=== PATIENT | male | born 1995 | race Caucasian/White ===

== ENCOUNTER 2017-04-27 19:26 | Inpatient (IN) ==
[2017-04-27] MEDS ORDERED: 0.9 % Sodium Chloride 1,000 ML IVC ONE (19:39)
--- NOTE | 2017-04-27 19:57 | Emergency Department Note ---
Disposition Clinical Impression: Drug abuse Leukocytosis Qualifiers: Leukocytosis type: unspecified Qualified Code(s): D72.829 - Elevated white blood cell count, unspecified Disposition: Admitted As Inpatient Condition: Fair Time of Disposition: 21:38 General Adult HPI - General Chief complaint: ED Weakness Stated complaint: bodyache/weakness Time Seen by Provider: 04/27/17 19:37 Source: patient, family, EMS Limitations: no limitations Nursing Notes Reviewed: Yes Vital Signs Reviewed: Yes - History of Present Illness HPI Narrative: Patient is a 21-year-old male who presents to [facility] ED with a chief complaint of generalized body aches and weakness. Patient was transferred here from the [place] urgent care with concern for possible endocarditis. Patient is an IV drug user and uses heroin approximately half gram daily over the course of 3-4 injections. The last time he used was 8:00 this morning. Admits to nausea, no vomiting. Has felt hot and chills at home though has not taken his temperature. He was sent over with concern for WBC count of 29,000. Patient denies any prior medical history. Onset (ago): day(s) Pain Scale: 0 Consistency: constant Improves with: nothing Worsens with: nothing Associated symptoms: Reports: fever/chills, malaise, nausea/vomiting, weakness. Denies: cough, headaches, loss of appetite, shortness of breath Treatments Prior to Arrival: none - Related Data Previous Rx's Medication Instructions Recorded Clindamycin [Cleocin] 150 mg PO Q6HR #40 capsule 02/07/17 Sulfamethoxazole/Trimeth DS 1 each PO BID #20 tablet 02/07/17 [Bactrim DS] Allergies Allergy/AdvReac Type Severity Reaction Status Date / Time No Known Allergies Allergy Verified 02/07/17 15:39 All systems ED: reviewed and negative except as stated. Past Medical History - Past Medical History Attestation: Yes The following information was validated with the patient. Source: patient Medical history: Reports: hepatitis, other Surgical history: Reports: no surgical history Psychiatric history: Reports: anxiety, depression, PTSD - Social History Smoking Status: Current every day smoker Smokeless Tobacco Status: No Alcohol use: Reports: none Drug use: Reports: marijuana, IV Drug Use Physical Exam - General Limitations: no limitations General appearance: alert, in no apparent distress - Head Head exam: atraumatic, normocephalic, normal inspection - Eye Eye exam: Present: normal appearance, PERRL, EOMI - ENT ENT exam: normal exam, normal oropharynx, mucous membranes moist - Neck Neck exam: Present: normal inspection, full ROM, trachea midline - Chest Chest inspection: Present: normal inspection, symmetric chest wall rise - Respiratory Respiratory exam: Present: normal lung sounds bilaterally - Cardiovascular Cardiovascular exam: Present: normal rhythm, tachycardia - Abdominal Exam Abdominal exam: Present: soft, Non-Tender. Absent: tenderness, distention, guarding, rebound, rigidity - Extremities Exam Extremities exam: Present: full ROM, other (track turk present). Absent: tenderness, pedal edema - Back Exam Back exam: Present: normal inspection, full ROM. Absent: tenderness - Neurological Exam Neurological exam: Present: alert, oriented X3 - Psychiatric Psychiatric exam: Present: normal affect, normal mood - Skin Skin exam: Present: warm, dry, intact, normal color Course Course Narrative: Patient seen and examined. Generalized weakness and feeling ill. Patient is nauseated. Admits to IV drug use. Patient had a full workup done [place] the [place] and received a dose of Rocephin IM. He had 2 blood cultures drawn there. We will repeat a set of blood cultures 3 here. We will add vancomycin for MRSA coverage. Patient is very tachycardic in the 120s here. We will give him a fluid bolus and do a CTA of the chest to evaluate for possible septic emboli. Pt will be admitted for tx for possible endocarditis and echocardiogram. - Reevaluation(s) Reevaluation #1: CTA of the chest does not show any signs of septic emboli. We will admit for workup for possible endocarditis/bacteremia. Discussed with hospitalist Dr. Burrell who has accepted patient for admission. Time: 21:39 Vital Signs Temperature 99.2 F 04/27/17 19:34 Pulse Rate 112 04/27/17 19:34 Respiratory Rate 16 04/27/17 19:34 Blood Pressure 117/90 04/27/17 19:34 O2 Sat by Pulse Oximetry 97 04/27/17 19:34 Temperature 99.2 F 04/27/17 19:34 Pulse Rate 114 04/27/17 20:53 Respiratory Rate 20 04/27/17 20:53 Blood Pressure 120/92 04/27/17 20:53 O2 Sat by Pulse Oximetry 98 04/27/17 20:53 Oxygen Delivery Oxygen Delivery Room Air Medical Decision Making - Medical Records Medical records reviewed: Yes I reviewed the patient's medical records. - Lab Data Lab results reviewed: Yes I reviewed the patient's lab results. - Radiology Data Radiology results reviewed: Yes I reviewed the patient's radiology results. Chest CTA 04/27/17 19:38 IMPRESSION: Normal CTA chest D/ / Niko Unger MD / Niko Unger MD Interpreting Provider: Niko Unger MD Attestation Statement - Attestation Attestation: I, Jacky Peña MD, personally evaluated this patient and discussed their management with the resident physician. I reviewed the resident's note and agree with the documented findings, medical decision making, and plan of care. Patient is a 21-year-old male who is transferred here from the local [place] urgent care for admission for possible bacterial endocarditis. Patient has a history of IV drug abuse. According to [place] records. Appears he has had bacterial endocarditis in the past. Patient presented there complaining of symptoms for about 2-1/2 weeks. Patient had an abscess to the left forehead and cultures grew out MRSA. He states ever since that time he has had chills and fevers with generalized weakness and body aches. No significant cough. He has had some mild intermittent chest pain but none today. No significant shortness of breath. Workup today at the [place] revealed a WBC of 29. Patient had blood cultures at the [place] and was given Rocephin 1 g IM. On examination patient is a well-developed well-nourished well-appearing young male in no acute distress. He arrived sitting upright on the EMS stretcher texting on his cell phone. He is alert and oriented 3. There is no cyanosis or diaphoresis. Patient has a small crusted healing lesion to the left upper forehead. Mucous membranes are moist. Throat is clear with no injection or exudate. Airways patent. Neck is supple and nontender with no lymphadenopathy and full range of motion. No meningismus. Breath sounds clear and equal bilaterally. Heart tachycardic and regular. Abdomen is soft with normal bowel sounds. No gross focal neurological deficits. [facility] Additional blood cultures obtained here. A CTA of the chest was obtained and was normal. The hospitalist, Dr. Burrell, was consulted and accepted admission of the patient.
[2017-04-27] MEDS ORDERED: Ondansetron 4 MG/2 ML VIAL IVP PRN (22:00)
[2017-04-27] MEDS ORDERED: Acetaminophen 325 MG TABLET PO PRN (22:00)
[2017-04-27] MEDS ORDERED: Naloxone 0.4 MG/ML INJ IVP PRN (22:00)
--- NOTE | 2017-04-27 22:13 | Internal Med History&Physical ---
Date of Encounter: 04/27/17 Time of Encounter: 21:00 Assessment and Plan (1) Sepsis Current visit: Yes Status: Acute Patient admitted sepsis criteria with tachycardia, fever, leukocytosis. The source of the infection probably due to IV drug abuse, need to rule out bacteremia or endocarditis. - IV fluid resuscitation started in ER - Blood pressure has been drawn - Continue vancomycin and Rocephin IV - TTE in a.m. to rule out endocarditis - Follow up blood culture results Qualifiers: Sepsis type: sepsis due to unspecified organism Qualified Code(s): A41.9 - Sepsis, unspecified organism (2) IV drug user Current visit: Yes Status: Acute Withdraw precaution. No signs of withdrawal at this point (3) Tobacco abuse Current visit: Yes Status: Acute Smoking cessation education. Nicotine patch place (4) DVT prophylaxis Current visit: Yes Status: Acute Patient is young and ambulating well. Low risk for DVT. No anticoagulation placed Internal Medicine - H&P: HPI Chief complaint: Weakness Admitted From: Home Plans for Post Hospital Care: Home History of present illness: Mr. Tam is a 21 year old male with history of tobacco abuse, IV drug abuse, presented to the [place] urgent care today for generalized weakness, subjective fever , mild headache, nausea, vomiting, and muscle ache. Patient said he feels sick like this for about one week. This morning he checked the temperature which was 100.1. Patient denies runny nose, sore throat, cough, abdominal pain, diarrhea. In [place] urgent care, he was found leukocytosis with WBC 29,000. Patient was transferred to our hospital to rule out endocarditis considering the history of IV drug use. Patient had blood cultures send from [place] urgent and also had 3 sets of blood culture drawn in our ER. Patient was started on Vanco. The patient was also given Rocephin from [place] urgent care. Patient said he was checked recently in [place], he was told hep C positive but HIV negative. Past Med Surg Social Fam HX - Past Medical History Medical history: hepatitis, other Psychiatric history: anxiety, depression, PTSD - Past Surgical History Surgical History: no surgical history - Social History Smoking Status: Current every day smoker Smokeless Tobacco Status: No Alcohol use: none Drug use: marijuana, IV Drug Use - Family History Mother History Unknown: Yes Internal Medicine - H&P: Meds Clindamycin [Cleocin] 150 mg PO Q6HR #40 capsule 02/07/17 [Rx] Sulfamethoxazole/Trimeth DS [Bactrim DS] 1 each PO BID #20 tablet 02/07/17 [Rx] 3 Allergy/AdvReac Type Severity Reaction Status Date / Time No Known Allergies Allergy Verified 02/07/17 15:39 All Systems PM: A 10-system review of systems was performed and is negative for pertinent findings except as documented above in the HPI. - Constitutional Vitals: Temp Pulse Resp BP Pulse Ox 99.2 F 114 20 120/92 98 04/27/17 19:34 04/27/17 20:53 04/27/17 20:53 04/27/17 20:53 04/27/17 20:53 General appearance: Present: A&O X 3, no acute distress, answers questions appropriately - Head Head exam: Present: atraumatic, normocephalic - Eye Eye exam: Present: PERRL, conjuntiva pink, sclera anicteric Pupils: Present: PERRL - Neck Neck exam general surgery: Present: supple, trachea midline. Absent: lymphadenopathy - Respiratory Respiratory exam: Present: CTAB. Absent: accessory muscle use, rales, rhonchi, wheezes - Cardiovascular Cardiovascular exam: Present: RRR, +S1, +S2. Absent: diastolic murmur, gallop, rubs, systolic murmur - GI/Abdominal GI/Abdominal exam: Present: normal bowel sounds, soft, no peritoneal signs. Absent: distended, tenderness - Extremities Exam Extremities exam: Present: warm, radial pulses palpable and symmetrical. Absent : calf tenderness, cyanotic, pedal edema - Neurological Exam Neurological exam: Present: CN II-XII intact, oriented X3, no focal deficits. Absent: pronater drift, facial droop, speech deficit - Skin Skin exam: Present: dry, intact
[2017-04-27] MEDS: Nicotine 21 MG PATCH.TD24 TD SCH (23:37)
[2017-04-27] MEDS: 0.9 % Sodium Chloride 1,000 ML IVC SCH (23:38)
[2017-04-28 04:01] LABS: Basophils % 0.3 %; Eosinophils # 0.2 K/mcL (0.0-0.6); Eosinophils % 1.7 %; Hematocrit 39.2 % (37.5-50.1); Hemoglobin 12.8 g/dL (12.9-16.9); Immature Granulocytes % 0.3 % (0-4); Lymphocytes # 3.2 K/mcL (0.6-4.6); Lymphocytes % 26.8 %; Mean Corpuscular HGB Conc 32.7 g/dL (31.6-35.5); Mean Corpuscular Hemoglobin 28.6 pg (28.0-33.3); Mean Corpuscular Volume 87.7 fL (83.0-100.0); Monocytes % 8.1 %; Neutrophils # 7.5 K/mcL (1.6-8.9); Platelet Count 270 K/mcL (140-400); Red Blood Count 4.47 M/mcL (4.19-5.50); Red Cell Distribution Width 15.6 % (11.5-14.5); Segmented Neutrophils % 62.8 %
[2017-04-28 04:24] LABS: BUN/Creatinine Ratio 17 (6-26); Blood Urea Nitrogen 10 mg/dL (6-20); Calcium 8.2 mg/dL (8.6-10.3); Carbon Dioxide 28 mEq/L (23-29); Chloride 105 mEq/L (98-107); Glucose 102 mg/dL (70-105); Magnesium 2.1 mg/dL (1.6-2.6); Osmolality,Calculated 283 (280-300); Sodium 137 mEq/L (136-145); eGFR For African Americans > 60 (> 60); eGFR For Non-African Americans > 60 (> 60)
[2017-04-28] MEDS: 0.9 % Sodium Chloride 1,000 ML IVC SCH ×2 (08:12→20:30)
[2017-04-28] MEDS: Nicotine 21 MG PATCH.TD24 TD SCH (08:12)
[2017-04-28] MEDS ORDERED: cefTRIAXone 1,000 MG in Water for inj. (sterile) 20 ML 10 ML IVP SCH (09:00)
[2017-04-28] MEDS: cloNIDine HCl 0.1 MG TABLET PO SCH ×2 (10:11→20:30)
[2017-04-28] MEDS: *HR* LORazepam 2 MG/ML VIAL IVP PRN ×2 (14:35→23:19)
[2017-04-28] MEDS: Piperacillin/Tazobactam 3.375 GM in 0.9 % Sodium Chloride Mini Bag 100 ML IVPB SCH (15:30)
--- NOTE | 2017-04-28 16:23 | Internal Med Progress Note ---
Date of Encounter: 04/28/17 Time of Encounter: 16:22 - Assessment and plan (1) SIRS (systemic inflammatory response syndrome) Current Visit: Yes Status: Acute Assessment and plan: Does meet SIRS criteria with elevated WBC, Fever, and bacteremia cont empirical abx Vanc and added Zosyn IV hydration (2) Bacteremia Current Visit: Yes Status: Acute Assessment and plan: His blood cx 05/15 came back as positive for G+ve rods Cont Vancomycin d/c Rocephin added Zosyn for broad spectrum He does have heart murmur, and have 1 major and 3 minor criteria will f/u on TTE If TTE is non confirmatory definitely need MARCE Will consult Card for further eval will consult ID in AM for further abx management (3) IV drug abuse Current Visit: Yes Status: Acute Assessment and plan: High risk for withdraw symptoms Pt does use IV Fentanyl and IV Heroin will check UDS SW consulted on CIWA protocol on Ativan PRN on Clonidine 0.1mg BID IVF (4) Tobacco abuse Current Visit: Yes Status: Acute Assessment and plan: Counseled to quit smoking placed on nicotine patch - Subjective Interval history: Mr. Tam is a 21 year old male with history of tobacco abuse, IV drug abuse, presented to the [place] urgent care for generalized weakness, subjective fever, mild headache, nausea, vomiting, and muscle ache. Patient said he feels sick like this for about one week. This morning he checked the temperature which was 100.1. Patient denies runny nose, sore throat, cough, abdominal pain, diarrhea. In [place] urgent care, he was found leukocytosis with WBC 29,000. Patient was transferred to our hospital to rule out endocarditis considering the history of IV drug use. Patient had blood cultures send from [place] urgent and also had 3 sets of blood culture drawn in our ER. Patient was started on Vanco. The patient was also given Rocephin from [place] urgent care. Patient said he was checked recently in [place], he was told hep C positive but HIV negative. Pt is resting comfortably now. Denied any CP / SOB - Constitutional Vitals: Temp Pulse Resp BP Pulse Ox 98.7 F 89 16 112/68 99 04/28/17 15:34 04/28/17 15:34 04/28/17 15:34 04/28/17 15:34 04/28/17 15:34 General appearance: Present: A&O X 3, no acute distress, answers questions appropriately - Head Head exam: Present: atraumatic, normal inspection - Neck Neck exam general surgery: Present: supple - Respiratory Respiratory exam: Present: decreased breath sounds. Absent: rales, respiratory distress, rhonchi, wheezes - Cardiovascular Cardiovascular exam: Present: RRR, +S1, +S2, systolic murmur. Absent: tachycardia - GI/Abdominal GI/Abdominal exam: Present: normal bowel sounds, soft. Absent: rebound, rigid, tenderness - Extremities Exam Extremities exam: Absent: calf tenderness, pedal edema, tenderness - Back Exam Back exam: Absent: CVA tenderness (L), CVA tenderness (R) - Neurological Exam Neurological exam: Present: alert, oriented X3 - Psychiatric Psychiatric exam: Present: normal affect, suicidal ideation - Skin Skin exam: Absent: rash Internal Medicine: Result - Labs CBC & Chem 7: 04/28/17 03:44 04/28/17 03:44 Labs: Short CBC 04/28/17 Range/Units 03:44 WBC 11.9 H (4.3-11.1) K/mcL Hgb 12.8 L (12.9-16.9) g/dL Hct 39.2 (37.5-50.1) % Plt Count 270 (140-400) K/mcL Neutrophils # 7.5 (1.6-8.9) K/mcL BMP 04/28/17 03:44 Sodium 137 Potassium 4.0 Chloride 105 Carbon Dioxide 28 BUN 10 Creatinine 0.58 L Glucose 102 Calcium 8.2 L Consult Discharge Plan - Plan [facility]Primary Care Provider[facility] -
[2017-04-28] MEDS ORDERED: Ketorolac 15 MG/ML VIAL IVP ONE (21:15)
[2017-04-29] MEDS: Piperacillin/Tazobactam 3.375 GM in 0.9 % Sodium Chloride Mini Bag 100 ML IVPB SCH ×2 (01:00→07:51)
[2017-04-29] MEDS: 0.9 % Sodium Chloride 1,000 ML IVC SCH ×3 (07:02→15:50)
[2017-04-29] MEDS: Nicotine 21 MG PATCH.TD24 TD SCH (07:50)
[2017-04-29] MEDS: cloNIDine HCl 0.1 MG TABLET PO SCH ×2 (07:50→20:26)
[2017-04-29] MEDS: *HR* LORazepam 1 MG TABLET PO PRN (07:50)
[2017-04-29] MEDS: *HR* LORazepam 2 MG/ML VIAL IVP PRN ×3 (10:50→23:22)
--- NOTE | 2017-04-29 11:04 | Infectious Disease Consult ---
Date of Encounter: 04/29/17 Time of Encounter: 11:02 Assessment and Plan (1) Sepsis Status: Acute Assessment and plan: The patient had three SIRS criteria on admission. Likely secondary to bacteremia. Improved. WBC trending down. Tachycardia improved. Afebrile since admission. Blood cultures drawn at the [facility] are positive 2/2 sets for Bacillus species. Repeat blood cultures drawn in the ER are positive 2/3 sets for Bacillus species. Repeat blood cultures x 2 sets now. Check CBC and BMP. Qualifiers: Sepsis type: sepsis due to unspecified organism Qualified Code(s): A41.9 - Sepsis, unspecified organism (2) Bacteremia Status: Acute Assessment and plan: Causative organism Bacillus species. Final ID and sensitivities are pending. Blood cultures drawn x 2 sets at the [facility] 04/27/17 are positive 2/2 sets for GPR , likely Bacillus species. Repeat blood cultures drawn x 3 sets in the ER on 04/27/17 are positive 2/3 sets for Bacillus species. Source unclear, but likely IVDU. No endocarditis stigmata noted on exam. I do not appreciate a murmur. The patient has one major and two minor Modified Bello's Criteria --> possible endocarditis. TTE negative for vegetations. Will need MARCE prior to discharge. Check rheumatoid factor. Repeat blood cultures x 2 sets now. Continue Vancomycin IV. Pharmacy to dose. Goal trough ~15. Discontinue Zosyn. Duration of treatment depends on the clinical picture. Monitor renal function and for drug toxicity and dose-adjust antibiotics. (3) IV drug user Status: Acute Assessment and plan: Reports daily use of IV heroine and fentanyl. Known Hep C positive. Reports he was tested for HIV at the [facility] a few months ago and it was negative, but since he continues to do IV drugs we will re-check. Withdrawal management per the primary team. (4) Tobacco abuse Status: Acute Assessment and plan: Patient requesting to go outside and smoke. Discussed smoking cessation. Continue NRT per the primary team. Infectious Disease HPI - Data of Consult Patient: new to practice Consult date: 04/29/17 Requesting Physician: Kenneth Malik MD [facility] - Consult Narrative Reason for consult: Bacteremia History of present illness: Mr. 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 The patient was admitted to the hospital April 27 for possible endocarditis. We are consulted April 29 for antibiotic recommendations for bacteremia. Briefly, the patient's a 21-year-old male with past medical history as stated above. The patient presented to the [facility] urgent care with complaints of fevers, chills, nausea, vomiting, generalized fatigue and malaise and diffuse body aches that started about a week prior to admission. He recently had an abscess to the left for head that required incision and drainage at the [facility]. He states he is treated with amoxicillin and doxycycline and finished those antibiotics about 2 days prior to admission. He reports that the wound culture was positive for MRSA. Upon presentation to the [facility], the patient had leukocytosis with a white blood cell count 29,000 and concerns for possible murmur. With his history of IV drug use there was concern about possible endocarditis and he was transferred here to our emergency department. Upon arrival to the ER, the patient had low-grade fever and tachycardia. Blood cultures obtained at the [facility] +2 out of 2 sets for gram-positive rods as well as blood cultures drawn here that are + 2 out of 3 sets. I did speak with her micral lab and the micro-lab at the [facility] who both report that this is likely a bacillus species. He was started empirically on IV vancomycin and IV Rocephin. He was admitted to the hospital for further evaluation. Summer, the patient's white blood cell count has trended down. His tachycardia has resolved. He has been afebrile here. He did have a transthoracic echocardiogram that showed an EF of 60% and no valvular dysfunction. His antibiotics were switched to vancomycin and Zosyn. His bank trough this morning was 14.2. We have been asked to evaluate and make further recommendations. During my exam today, the patient endorses a history as stated above. He reports fevers and chills at home. He also reports a headache, but denies any neck pain or stiffness. He denies any recent congestion, earache, or sore throat. He reports the recent abscess to his left forehead as above. He denies any chest pain or shortness of breath or cough. He does report nausea and vomiting and some diffuse abdominal cramping. He denies any diarrhea or urinary complaints or penile discharge. He states his appetite has been okay. He denies any oral thrush or skin lesions except as mentioned above. He denies any visual disturbances, blurred vision, or floaters. He reports he injects into the right arm and denies any open sores, lesions, or rashes. Denies using any other injection sites. Reports diffuse body aches and myalgias, but denies any specific joint pain, swelling, or erythema. He denies back pain. She lives at home alone in [place], [place]. He is not currently employed. He was in the [employer] and served overseas in [place] and [place], but has not been outside the [place] for about 2 years. He reports that he smokes a pack cigarettes per day. He denies any alcohol use. He reports IV heroin and IV sentinel use daily. He is known hep C positive. No other history of right infectious diseases. CC: Kenneth Malik MD Past Med Surg Social Fam HX - Past Medical History Attestation: Yes The following information was validated with the patient. Source: patient, old records reviewed, nursing notes reviewed Medical history: hepatitis (Hep C) Psychiatric history: anxiety, depression, PTSD - Past Surgical History Surgical History: no surgical history - Social History Smoking Status: Current every day smoker Packs per day: 1 Smokeless Tobacco Status: No Alcohol use: none Drug use: marijuana, IV Drug Use (Heroine and Fentanyl) Occupational status: unemployed Current living situation: Home - Independent Activity Level: Independent ambulation Recent Out of Country Travel Within the Last 8 Weeks: No Exposure or Possible Exposure to Illness During Travel: No - Family History Mother History Unknown: Yes Grandfather Living Status: Still Living Hx Family Cardiac Disorders: Yes Infectious Disease-CN:Meds No Known Home Drugs 04/29/17 [History] 3 Allergy/AdvReac Type Severity Reaction Status Date / Time No Known Allergies Allergy Verified 04/29/17 11:20 All systems: reviewed and no additional remarkable complaints except as stated Exam - Constitutional Vitals: Temp Pulse Resp BP Pulse Ox 98.4 F 80 16 109/67 97 04/29/17 07:57 04/29/17 07:57 04/29/17 07:57 04/29/17 07:57 04/29/17 07:57 General appearance: cooperative, no acute distress, thin - Head Head exam: Present: atraumatic, normal inspection, normocephalic - Eye Eye exam: Present: EOMI, normal appearance, PERRL Pupils: Present: normal accommodation Additional comments: No subconjunctival hemorrhage noted. - ENT ENT exam: Present: mucous membranes moist Additional comments: Missing tooth noted. Scabbed lesion noted to the left temporal region. No surround erythema, warmth, or drainage noted. - Neck Neck exam: Present: normal inspection. Absent: lymphadenopathy, meningismus - Respiratory Respiratory exam: Present: CTAB. Absent: rales, respiratory distress, rhonchi, wheezes - Cardiovascular Cardiovascular exam: Present: RRR, +S1, +S2 - GI/Abdominal GI/Abdominal exam: Present: normal bowel sounds, soft. Absent: distended, tenderness - Extremities Exam Extremities exam: Present: normal inspection. Absent: joint swelling, pedal edema, tenderness - Back Exam Back exam: Absent: paraspinal tenderness, vertebral tenderness - Neurological Exam Neurological exam: Present: alert, oriented X3, no focal deficits - Psychiatric Psychiatric exam: Present: normal affect, normal mood - Skin Skin exam: Present: dry, intact, normal color, warm Additional comments: No endocarditis stigmata noted. Infectious Disease CN: Results - Labs CBC & Chem 7: 04/29/17 11:32 04/29/17 11:32 Cultures: Cultures 04/27/17 20:07 Blood Culture - Preliminary Peripheral Venipuncture No growth. 04/27/17 20:07 Blood Culture - Preliminary Peripheral Venipuncture Gram Positive Rods 04/27/17 20:07 Blood Culture - Preliminary Peripheral Venipuncture Gram Positive Rods Consult Discharge Plan - Plan [facility]errals: [facility] [Primary Care Provider] - - Attending Attestation I examined this patient and my medical decision-making was reviewed with the Resident Physician. I agree with the documented findings, disposition and treatment plan as described except to the extent set forth below. This is an addendum to original report dictated by Cris Bauman CNP. Please refer to Isidra lewis for full details. Briefly patient is a 21 year old gentleman with past medical history for recent diagnosis of Hep C and social history for IVDU with heroin and fentanyl who presented to the [facility] with fevers, chills, nausea, fatigue and just not feeling well. Patient was evaluated and they noted patient to be febrile, cultures positive for GPR and questionable murmur on physical exam. Patient was sent here for evaluation. Since admission, patient has been afebrile with tmax of 99.2, tachycardia, leukocytosis and positive blood cultures 2/3 sets for GPR. Pt had a TTE which revealed no vegetation. Pt was stared on broad spectrum abx and we were consulted. At this point, Patient is on vancomycin and zosyn The gpr is likely a bacillus Will d/c zosyn Continue vancomycin with gaol trough about 15 Repeat cultures today Get RF Pt has 3 minor dukes criteria
[2017-04-29 12:11] LABS: Basophils % 0.3 %; Eosinophils % 0.4 %; Hemoglobin 13.1 g/dL (12.9-16.9); Immature Granulocytes % 0.3 % (0-4); Lymphocytes # 1.9 K/mcL (0.6-4.6); Lymphocytes % 20.6 %; Mean Corpuscular HGB Conc 32.8 g/dL (31.6-35.5); Mean Corpuscular Hemoglobin 28.4 pg (28.0-33.3); Mean Corpuscular Volume 86.8 fL (83.0-100.0); Mean Platelet Volume 9.4 fL (9.4-12.4); Monocytes # 0.7 K/mcL (0.0-1.3); Neutrophils # 6.6 K/mcL (1.6-8.9); Platelet Count 302 K/mcL (140-400); Red Blood Count 4.61 M/mcL (4.19-5.50); Red Cell Distribution Width 15.7 % (11.5-14.5); Segmented Neutrophils % 71.4 %
[2017-04-29 12:43] LABS: BUN/Creatinine Ratio 8 (6-26); Blood Urea Nitrogen 5 mg/dL (6-20); C-Reactive Protein 17 mg/L (Less than 10); Carbon Dioxide 26 mEq/L (23-29); Chloride 108 mEq/L (98-107); Glucose 126 mg/dL (70-105); Osmolality,Calculated 283 (280-300); Potassium 3.6 mEq/L (3.5-5.1); Sodium 137 mEq/L (136-145); eGFR For African Americans > 60 (> 60); eGFR For Non-African Americans > 60 (> 60)
--- NOTE | 2017-04-29 17:40 | Internal Med Progress Note ---
Date of Encounter: 04/29/17 Time of Encounter: 11:45 - Assessment and plan (1) SIRS (systemic inflammatory response syndrome) Current Visit: Yes Status: Acute Assessment and plan: Does meet SIRS criteria with elevated WBC, Fever, and bacteremia cont empirical abx Vanc and added Zosyn d/c IVF (2) Bacteremia Current Visit: Yes Status: Acute Assessment and plan: His blood cx 05/15 came back as positive for G+ve rods - Mostly bacillus Talked to ID, [facility] - shows Bacillus ID suggestes it is very unlkely endocarditis Did not recommend MARCE 2 D Echo did not show any vegetations Cont Vancomycin d/c Zosyn Will defer to ID about further abx management and duration of treatment (3) IV drug abuse Current Visit: Yes Status: Acute Assessment and plan: High risk for withdraw symptoms Pt does use IV Fentanyl and IV Heroin SW consulted UDS - P on CIWA protocol on Ativan PRN on Clonidine 0.1mg BID d/c IVF (4) Tobacco abuse Current Visit: Yes Status: Acute Assessment and plan: Counseled to quit smoking placed on nicotine patch - Subjective Interval history: Mr. Tam is a 21 year old male with history of tobacco abuse, IV drug abuse, presented to the [facility] urgent care for generalized weakness, subjective fever, mild headache, nausea, vomiting, and muscle ache. Patient said he feels sick like this for about one week. This morning he checked the temperature which was 100.1. Patient denies runny nose, sore throat, cough, abdominal pain, diarrhea. In [place] urgent care, he was found leukocytosis with WBC 29,000. Patient was transferred to our hospital to rule out endocarditis considering the history of IV drug use. Patient had blood cultures send from [facility] urgent and also had 3 sets of blood culture drawn in our ER. Patient was started on Vanco. The patient was also given Rocephin from [facility] urgent care. Patient said he was checked recently in [place], he was told hep C positive but HIV negative. Pt is resting comfortably now. Denied any CP / SOB - Constitutional Vitals: Temp Pulse Resp BP Pulse Ox 98.8 F 84 14 113/72 97 04/29/17 15:26 04/29/17 15:26 04/29/17 15:26 04/29/17 15:26 04/29/17 15:26 General appearance: Present: A&O X 3, no acute distress, answers questions appropriately - Head Head exam: Present: atraumatic, normal inspection - Neck Neck exam general surgery: Present: supple - Respiratory Respiratory exam: Present: decreased breath sounds. Absent: rales, respiratory distress, rhonchi, wheezes - Cardiovascular Cardiovascular exam: Present: RRR, +S1, +S2. Absent: tachycardia - GI/Abdominal GI/Abdominal exam: Present: normal bowel sounds, soft. Absent: rebound, rigid, tenderness - Extremities Exam Extremities exam: Absent: calf tenderness, pedal edema, tenderness - Back Exam Back exam: Absent: CVA tenderness (L), CVA tenderness (R) - Neurological Exam Neurological exam: Present: alert, oriented X3 - Psychiatric Psychiatric exam: Present: normal affect, normal mood Internal Medicine: Result - Labs CBC & Chem 7: 04/29/17 11:32 04/29/17 11:32 Labs: Short CBC 04/29/17 Range/Units 11:32 WBC 9.2 (4.3-11.1) K/mcL Hgb 13.1 (12.9-16.9) g/dL Hct 40.0 (37.5-50.1) % Plt Count 302 (140-400) K/mcL Neutrophils # 6.6 (1.6-8.9) K/mcL BMP 04/29/17 11:32 Sodium 137 Potassium 3.6 Chloride 108 H Carbon Dioxide 26 BUN 5 L Creatinine 0.62 L Glucose 126 H Calcium 9.0 - Impressions Impressions Echocardiogram 04/28/17 22:06 Impressions: LVEF 60%. Normal LV chamber size, wall thickness and function. Normal right ventricular structure and function. Unable to estimate RVSP due to lack of TR jet. No significant valvular dysfunction. Left Ventricular Wall Motion: Rest Echo Findings All wall segments showed normal motion. Findings: Study Quality * Technically adequate exam. ECG Findings * Normal sinus rhythm. Left Ventricle * LVEF 60%. * Normal LV chamber size, wall thickness and function. * No segmental dysfunction. Right Ventricle * Normal right ventricular structure and function. Left Atrium * Normal left atrial size. Right Atrium * Normal right atrial size. Interatrial Septum * No evidence of PFO by color Doppler. Aortic Valve * Trileaflet aortic valve with normal function. Mitral Valve * Normal mitral valve structure and function. Tricuspid Valve * No tricuspid regurgitation. * Unable to estimate RVSP due to lack of TR jet. Pulmonic Valve * Normal pulmonic valve structure and function. Aorta * Normally sized aortic root. Pericardium * The pericardium appears normal. IVC * Normal IVC dimensions and inspiratory collapse. Consult Discharge Plan - Plan [facility]errals: [facility] [Primary Care Provider] -
[2017-04-29] MEDS ORDERED: OLANZapine 10 MG TAB.RAPDIS PO ONE (21:15)
[2017-04-30] MEDS ORDERED: OLANZapine 10 MG TAB.RAPDIS PO ONE (00:04)
[2017-04-30 05:51] LABS: Basophils % 0.3 %; Eosinophils # 0.1 K/mcL (0.0-0.6); Eosinophils % 0.5 %; Hematocrit 38.3 % (37.5-50.1); Hemoglobin 12.6 g/dL (12.9-16.9); Immature Granulocytes % 0.3 % (0-4); Lymphocytes % 28.5 %; Mean Corpuscular HGB Conc 32.9 g/dL (31.6-35.5); Mean Corpuscular Hemoglobin 28.3 pg (28.0-33.3); Mean Corpuscular Volume 86.1 fL (83.0-100.0); Mean Platelet Volume 9.2 fL (9.4-12.4); Monocytes # 1.1 K/mcL (0.0-1.3); Monocytes % 10.4 %; Neutrophils # 6.4 K/mcL (1.6-8.9); Platelet Count 327 K/mcL (140-400); Red Blood Count 4.45 M/mcL (4.19-5.50); Red Cell Distribution Width 15.5 % (11.5-14.5)
[2017-04-30 06:15] LABS: BUN/Creatinine Ratio 6 (6-26); Blood Urea Nitrogen 3 mg/dL (6-20); Calcium 8.9 mg/dL (8.6-10.3); Carbon Dioxide 24 mEq/L (23-29); Chloride 111 mEq/L (98-107); Glucose 105 mg/dL (70-105); Osmolality,Calculated 289 (280-300); Potassium 3.6 mEq/L (3.5-5.1); Sodium 141 mEq/L (136-145); eGFR For African Americans > 60 (> 60); eGFR For Non-African Americans > 60 (> 60)
[2017-04-30] MEDS: cloNIDine HCl 0.1 MG TABLET PO SCH ×2 (10:49→20:16)
[2017-04-30] MEDS: *HR* LORazepam 1 MG TABLET PO PRN ×3 (10:49→21:06)
[2017-04-30] MEDS: Nicotine 21 MG PATCH.TD24 TD SCH (10:50)
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
--- NOTE | 2017-04-30 13:19 | Internal Med Progress Note ---
Date of Encounter: 04/30/17 Time of Encounter: 13:17 - Assessment and plan (1) Sepsis Current Visit: Yes Status: Acute Assessment and plan: Meets sepsis criteria with the bacteremia, leukocytosis, tachycardia, fever. We will treat underlying cause as below. The patient is anxious to leave and go smoke a sitter. I refused to allow that. If he is going to leave he is going to leave against medical advise. The mother is on board with this and she is a nurse and she understands the risks evening with a suspected endocarditis and persistent bacteremia. They are allowed to walk in our unit but nothing past the unit. There were explained that as well. Qualifiers: Sepsis type: sepsis due to unspecified organism Qualified Code(s): A41.9 - Sepsis, unspecified organism (2) Bacteremia Current Visit: Yes Status: Acute Assessment and plan: Due to the persistent bacteremia, I have ordered a MARCE. We will make patient nothing by mouth after midnight. Patient has risk factors for endocarditis given his history of IV drug abuse. ID is following and I appreciate their help. Continue vancomycin. Repeat blood cultures. Check hepatitis panel. Check LFTs. (3) IV drug abuse Current Visit: Yes Status: Acute Assessment and plan: Counseled. (4) DVT prophylaxis Current Visit: Yes Status: Acute Assessment and plan: We will add heparin subcutaneous. - Subjective Interval history: Patient was seen and examined. Mother is at bedside. The mother is a nurse. The patient wants to leave and smoke. He is anxious to leave the hospital as well. Admitted on 04/27 with fever and found to have gram-positive rods from blood cultures. Patient was put on IV vancomycin and ID is following. Echocardiogram was done ruled out vegetations there. He continues to have persistent bacteremia. Has been afebrile here. - Constitutional Vitals: Temp Pulse Resp BP Pulse Ox 98.6 F 80 14 98/54 97 04/30/17 11:27 04/30/17 11:27 04/30/17 11:27 04/30/17 11:27 04/30/17 11:27 General appearance: Present: A&O X 3, no acute distress, answers questions appropriately Exam: GEN: NAD CVS: RRR. S1, S2, No m/r/g RESP: CTAB ABD: Soft, NT, ND, +BS EXT: No edema. 2+ DP. No rashes NEURO: Nonfocal Internal Medicine: Result - Labs CBC & Chem 7: 04/30/17 05:33 04/30/17 05:33 Labs: Short CBC 04/30/17 Range/Units 05:33 WBC 10.6 (4.3-11.1) K/mcL Hgb 12.6 L (12.9-16.9) g/dL Hct 38.3 (37.5-50.1) % Plt Count 327 (140-400) K/mcL Neutrophils # 6.4 (1.6-8.9) K/mcL BMP 04/30/17 05:33 Sodium 141 Potassium 3.6 Chloride 111 H Carbon Dioxide 24 BUN 3 L Creatinine 0.53 L Glucose 105 Calcium 8.9 Consult Discharge Plan - Plan [facility]errals: [facility] [Primary Care Provider[facility] - [facility] with [facility]
[2017-04-30 15:21] LABS: Alanine Aminotransferase 110 Units/L (7-52); Albumin 3.6 g/dL (3.5-5.7); Albumin/Globulin Ratio 1.1 (1.1-2.2); Alkaline Phosphatase 117 Units/L (34-104); Aspartate Amino Transferase 52 Units/L (13-39); Bilirubin,Direct 0.1 mg/dL (0.0-0.2); Bilirubin,Indirect 0.2 mg/dL (0.0-1.2); Bilirubin,Total 0.3 mg/dL (0.3-1.0); Globulin 3.3 g/dL (2.4-3.5); Total Protein 6.9 g/dL (6.4-8.9)
[2017-04-30] MEDS: *HR* Heparin 5,000 UNIT/ML VIAL SQ SCH ×2 (16:35→20:15)
[2017-05-01 02:00] LABS: HIV-1&2 Antibody & p24 Ag Nonreactive (Nonreactive); Hepatitis A Antibody IgM Nonreactive (Nonreactive); Hepatitis B Core IgM Nonreactive (Nonreactive); Hepatitis B Surface Antigen Nonreactive (Nonreactive)
[2017-05-01 02:01] LABS: Hepatitis C Virus Antibody Reactive (Nonreactive)
[2017-05-01] MEDS: *HR* Heparin 5,000 UNIT/ML VIAL SQ SCH (04:54)
[2017-05-01 04:57] LABS: Basophils # 0.1 K/mcL (0.0-0.2); Basophils % 0.5 %; Eosinophils # 0.1 K/mcL (0.0-0.6); Eosinophils % 1.3 %; Hematocrit 41.9 % (37.5-50.1); Hemoglobin 13.5 g/dL (12.9-16.9); Immature Granulocytes % 0.3 % (0-4); Lymphocytes # 3.7 K/mcL (0.6-4.6); Lymphocytes % 36.6 %; Mean Corpuscular HGB Conc 32.2 g/dL (31.6-35.5); Mean Corpuscular Volume 86.7 fL (83.0-100.0); Mean Platelet Volume 9.5 fL (9.4-12.4); Neutrophils # 5.2 K/mcL (1.6-8.9); Platelet Count 368 K/mcL (140-400); Red Blood Count 4.83 M/mcL (4.19-5.50); Red Cell Distribution Width 15.9 % (11.5-14.5); Segmented Neutrophils % 51.3 %
[2017-05-01 05:05] LABS: BUN/Creatinine Ratio 13 (6-26); Blood Urea Nitrogen 9 mg/dL (6-20); Calcium 9.1 mg/dL (8.6-10.3); Carbon Dioxide 24 mEq/L (23-29); Chloride 109 mEq/L (98-107); Glucose 113 mg/dL (70-105); Magnesium 1.9 mg/dL (1.6-2.6); Osmolality,Calculated 287 (280-300); Potassium 3.8 mEq/L (3.5-5.1); Sodium 139 mEq/L (136-145); eGFR For African Americans > 60 (> 60); eGFR For Non-African Americans > 60 (> 60)
--- NOTE | 2017-05-01 07:36 | Internal Med Progress Note ---
Date of Encounter: 05/01/17 Time of Encounter: 07:34 - Assessment and plan (1) Sepsis Current Visit: Yes Status: Acute Assessment and plan: Meets sepsis criteria with the bacteremia, leukocytosis, tachycardia, fever. We will treat underlying cause as below. Qualifiers: Sepsis type: sepsis due to unspecified organism Qualified Code(s): A41.9 - Sepsis, unspecified organism (2) Bacteremia Current Visit: Yes Status: Acute Assessment and plan: Due to the persistent bacteremia, I have ordered a MARCE which is to be done today. Patient has risk factors for endocarditis given his history of IV drug abuse. ID is following and I appreciate their help. Continue vancomycin. Repeat blood cultures from 04/30 still pending. (3) Hepatitis C antibody positive in blood Current Visit: Yes Status: Acute Assessment and plan: Check quant HCV. check RUQ US. Will need GI evaluation outpatient. LFTs elevated here (4) IV drug abuse Current Visit: Yes Status: Acute Assessment and plan: Counseled. (5) DVT prophylaxis Current Visit: Yes Status: Acute Assessment and plan: heparin subcutaneous. - Subjective Interval history: Patient was seen and examined. Afebrile. Still "not feeling himself". NPO for MARCE. Admitted on 04/27 with fever and found to have gram-positive rods from blood cultures. Patient was put on IV vancomycin and ID is following. Echocardiogram was done ruled out vegetations there. He continues to have persistent bacteremia. Has been afebrile here. - Constitutional Vitals: Temp Pulse Resp BP Pulse Ox 98.2 F 84 12 94/60 97 05/01/17 06:34 05/01/17 06:34 05/01/17 06:34 05/01/17 06:34 05/01/17 06:34 General appearance: Present: A&O X 3, no acute distress, answers questions appropriately Exam: GEN: NAD CVS: RRR. S1, S2, No m/r/g RESP: CTAB ABD: Soft, NT, ND, +BS EXT: No edema. 2+ DP. No rashes NEURO: Nonfocal Internal Medicine: Result - Labs CBC & Chem 7: 05/01/17 03:59 05/01/17 03:59 Labs: Short CBC 05/01/17 Range/Units 03:59 WBC 10.1 (4.3-11.1) K/mcL Hgb 13.5 (12.9-16.9) g/dL Hct 41.9 (37.5-50.1) % Plt Count 368 (140-400) K/mcL Neutrophils # 5.2 (1.6-8.9) K/mcL BMP 04/30/17 05/01/17 05:33 03:59 Sodium 141 139 Potassium 3.6 3.8 Chloride 111 H 109 H Carbon Dioxide 24 24 BUN 3 L 9 Creatinine 0.53 L 0.67 L Glucose 105 113 H Calcium 8.9 9.1 Liver Function 04/30/17 Range/Units 05:33 Total Bilirubin 0.3 (0.3-1.0) mg/dL Direct Bilirubin 0.1 (0.0-0.2) mg/dL AST 52 H (13-39) Units/L ALT 110 H (7-52) Units/L Alkaline Phosphatase 117 H (34-104) Units/L Albumin 3.6 (3.5-5.7) g/dL Consult Discharge Plan - Plan [facility]errals: [facility] [Primary Care Provider[facility] - (Patient will be going to the [facility] locked unit. Will follow up with their providers)
[2017-05-01] MEDS ORDERED: Tetracaine/Benzocaine/Butamben 200MG/SPRAY (100SPY/BOT) MM ONE (08:50)
[2017-05-01] MEDS ORDERED: Lidocaine Viscous Oral Soln 15 ML SOLUTION MM PRN (08:50)
[2017-05-01] MEDS ORDERED: 0.9 % Sodium Chloride 500 ML IVC ONE (08:50)
--- NOTE | 2017-05-01 09:04 | Infectious Disease Progress No ---
Date of Encounter: 05/01/17 Time of Encounter: 09:01 - Assessment and Plan (1) Sepsis Current Visit: Yes Status: Acute The patient had three SIRS criteria on admission. Likely secondary to bacteremia. Improved. WBC normal. Tachycardia improved. Afebrile since admission. Blood cultures drawn at the [facility] are positive 2/2 sets for Bacillus species. Repeat blood cultures drawn in the ER are positive 2/3 sets for Bacillus species. Repeat blood cultures drawn 04/29/17 are positive 1/2 as well. Repeat blood cultures drawn 04/30/17 are pending x 2 sets. Qualifiers: Sepsis type: sepsis due to unspecified organism Qualified Code(s): A41.9 - Sepsis, unspecified organism (2) Bacteremia Current Visit: Yes Status: Acute Causative organism Bacillus species. Final ID and sensitivities are pending. Blood cultures drawn x 2 sets at the [facility] 04/27/17 are positive 2/2 sets for GPR , likely Bacillus species. Repeat blood cultures drawn x 3 sets in the ER on 04/27/17 are positive 2/3 sets for Bacillus species. The specimen was sent out to a reference lab for final ID and sensitivity. We should have a final ID and sensitivity tomorrow or Saturday. Repeat blood cultures drawn 04/29/17 are positive 1/2 as well. Additional blood cultures drawn 04/30/17 are pending x 2 sets. Source unclear, but likely IVDU. No endocarditis stigmata noted on exam. Rheumatoid factor 77. The patient has four minor Modified Bello's Criteria --> possible endocarditis. TTE negative for vegetations. MARCE pending. Continue Vancomycin IV. Pharmacy to dose. Goal trough ~15. Vanc trough 6.7. Dose -adjustment discussed with pharmacy. Duration of treatment depends on the clinical picture. Monitor renal function and for drug toxicity and dose-adjust antibiotics. (3) IV drug user Current Visit: Yes Status: Acute Reports daily use of IV heroine and fentanyl. Known Hep C positive. HIV non-reactive. Withdrawal management per the primary team. (4) Tobacco abuse Current Visit: Yes Status: Acute Patient requesting to go outside and smoke. Discussed smoking cessation. Continue NRT per the primary team. (5) Hepatitis C antibody positive in blood Current Visit: Yes Status: Acute GI referral as an outpatient. - Subjective Interval history: Patient seen and examined. No acute events noted overnight. Patient seen with his father at the bedside. During my exam, the patient proceeded to get up and go to the bathroom. The patient states that overall he doesn't feel very well. He denies fevers, chills, or rigors, but complains of nausea and diarrhea and abdominal cramping. Denies chest pain or shortness of breath or cough. Reports that he hurts "all over." Denies oral thrush or new skin lesions. Infect Dis PN-Objective Data - Labs CBC & Chem 7: 05/01/17 03:59 05/01/17 03:59 Labs: Laboratory Results - last 24 hr 04/30/17 04/30/17 04/30/17 05:33 11:22 11:28 WBC RBC Hgb Hct MCV MCH MCHC RDW Plt Count MPV Immature Gran % Seg Neutrophils % Lymphocytes % Monocytes % Eosinophils % Basophils % Neutrophils # Lymphocytes # Monocytes # Eosinophils # Basophils # Sodium 141 Potassium 3.6 Chloride 111 H Carbon Dioxide 24 BUN 3 L Creatinine 0.53 L Est GFR ( Amer) > 60 Est GFR (Non-Af Amer) > 60 BUN/Creatinine Ratio 6 Glucose 105 Calculated Osmolality 289 Calcium 8.9 Magnesium Total Bilirubin 0.3 Direct Bilirubin 0.1 Indirect Bilirubin 0.2 AST 52 H ALT 110 H Alkaline Phosphatase 117 H Serum Total Protein 6.9 Albumin 3.6 Globulin 3.3 Albumin/Globulin Ratio 1.1 Nasal Screen MRSA (PCR) Vancomycin Trough Rheumatoid Factor 77 H Hepatitis A IgM Ab Nonreactive Hep Bs Antigen Nonreactive Hep B Core IgM Ab Nonreactive Hepatitis C Ab Screen Reactive H HIV Ag/Ab Combo Qual Nonreactive 04/30/17 04/30/17 05/01/17 16:30 18:28 03:59 WBC 10.1 RBC 4.83 Hgb 13.5 Hct 41.9 MCV 86.7 MCH 28.0 MCHC 32.2 RDW 15.9 H Plt Count 368 MPV 9.5 Immature Gran % 0.3 Seg Neutrophils % 51.3 Lymphocytes % 36.6 Monocytes % 10.0 Eosinophils % 1.3 Basophils % 0.5 Neutrophils # 5.2 Lymphocytes # 3.7 Monocytes # 1.0 Eosinophils # 0.1 Basophils # 0.1 Sodium Potassium Chloride Carbon Dioxide BUN Creatinine Est GFR ( Amer) Est GFR (Non-Af Amer) BUN/Creatinine Ratio Glucose Calculated Osmolality Calcium Magnesium Total Bilirubin Direct Bilirubin Indirect Bilirubin AST ALT Alkaline Phosphatase Serum Total Protein Albumin Globulin Albumin/Globulin Ratio Nasal Screen MRSA (PCR) Negative Vancomycin Trough 6.7 L Rheumatoid Factor Hepatitis A IgM Ab Hep Bs Antigen Hep B Core IgM Ab Hepatitis C Ab Screen HIV Ag/Ab Combo Qual 05/01/17 03:59 WBC RBC Hgb Hct MCV MCH MCHC RDW Plt Count MPV Immature Gran % Seg Neutrophils % Lymphocytes % Monocytes % Eosinophils % Basophils % Neutrophils # Lymphocytes # Monocytes # Eosinophils # Basophils # Sodium 139 Potassium 3.8 Chloride 109 H Carbon Dioxide 24 BUN 9 Creatinine 0.67 L Est GFR ( Amer) > 60 Est GFR (Non-Af Amer) > 60 BUN/Creatinine Ratio 13 Glucose 113 H Calculated Osmolality 287 Calcium 9.1 Magnesium 1.9 Total Bilirubin Direct Bilirubin Indirect Bilirubin AST ALT Alkaline Phosphatase Serum Total Protein Albumin Globulin Albumin/Globulin Ratio Nasal Screen MRSA (PCR) Vancomycin Trough Rheumatoid Factor Hepatitis A IgM Ab Hep Bs Antigen Hep B Core IgM Ab Hepatitis C Ab Screen HIV Ag/Ab Combo Qual Cultures: Cultures 04/29/17 11:32 Blood Culture - Preliminary Peripheral Venipuncture No growth. 04/29/17 11:32 Blood Culture - Preliminary Peripheral Venipuncture Gram Positive Rods Serology 04/30/17 04/30/17 04/29/17 Range/Units 16:30 11:28 16:00 Nasal Screen MRSA (PCR) Negative Negative (Negative) Hepatitis A IgM Ab Nonreactive (Nonreactive) Hep Bs Antigen Nonreactive (Nonreactive) Hep B Core IgM Ab Nonreactive (Nonreactive) Hepatitis C Ab Screen Reactive H (Nonreactive) HIV Ag/Ab Combo Qual Nonreactive (Nonreactive) Exam - Constitutional Vitals: Temp Pulse Resp BP Pulse Ox 98.2 F 84 12 94/60 97 05/01/17 06:34 05/01/17 06:34 05/01/17 06:34 05/01/17 06:34 05/01/17 06:34 General appearance: cooperative, no acute distress, thin - Head Head exam: Present: atraumatic, normal inspection, normocephalic - Eye Eye exam: Present: EOMI, normal appearance, PERRL Pupils: Present: normal accommodation Additional comments: No subconjunctival hemorrhage noted. - ENT ENT exam: Present: mucous membranes moist - Neck Neck exam: Present: normal inspection - Respiratory Respiratory exam: Present: CTAB. Absent: rales, respiratory distress, rhonchi, wheezes - Cardiovascular Cardiovascular exam: Present: RRR, +S1, +S2 - GI/Abdominal GI/Abdominal exam: Present: normal bowel sounds, soft, tenderness (RUQ). Absent : distended - Extremities Exam Extremities exam: Present: normal inspection. Absent: joint swelling, pedal edema, tenderness - Back Exam Back exam: Present: normal inspection. Absent: paraspinal tenderness, vertebral tenderness - Neurological Exam Neurological exam: Present: alert, oriented X3, no focal deficits - Psychiatric Psychiatric exam: Present: normal affect, normal mood - Skin Skin exam: Present: dry, intact, normal color, warm Additional comments: Scabbed lesion noted to the left temporal area without redness, warmth, or drainage. No endocarditis stigmata noted. Consult Discharge Plan - Plan Referrals: [facility] [Primary Care Provider] - (Patient will be going to the inpt [facility] locked unit. Will follow up with their providers) - Attending Attestation I examined this patient and my medical decision-making was reviewed with the Resident Physician. I agree with the documented findings, disposition and treatment plan as described except to the extent set forth below.
[2017-05-01] MEDS: *HR* Midazolam HCl 5 MG/5 ML VIAL IVP PRN ×3 (09:35→09:45)
[2017-05-01] MEDS: *HR* FentaNYL (PF) 100 MCG/2 ML VIAL IVP PRN ×3 (09:35→09:45)
[2017-05-01] MEDS: Nicotine 21 MG PATCH.TD24 TD SCH (11:48)
[2017-05-01 11:49] VITALS: BP 120/76
[2017-05-01] MEDS: cloNIDine HCl 0.1 MG TABLET PO SCH (12:41)
[2017-05-01] MEDS ORDERED: Aminoglycoside Consult 1 EACH MC ONE (14:59)
--- NOTE | 2017-05-01 15:45 | Discharge Summary ---
Orders not resulted at time of discharge: Pending orders 04/29/17 11:32 Culture,Blood [BC] Stat Culture,Blood,Additional [BC] Stat 04/30/17 11:44 Culture,Blood [BC] Stat 04/30/17 11:47 Culture,Blood,Additional [BC] Stat 05/01/17 07:49 Hepatitis C Virus Quant Stat 05/02/17 04:00 BMP [Basic Metabolic Panel] AM 0400 Complete Blood Count [HEME] AM 0400 Magnesium AM 0400 05/02/17 11:30 Vancomycin,Trough Timed Date of Encounter: 05/01/17 Time of Encounter: 15:39 - Discharge Diagnosis (1) Sepsis Priority: Primary Status: Acute Qualifiers: Sepsis type: sepsis due to unspecified organism Qualified Code(s): A41.9 - Sepsis, unspecified organism (2) Bacteremia Priority: Primary Status: Acute (3) Hepatitis C antibody positive in blood Priority: Primary Status: Acute (4) IV drug abuse Priority: Secondary Status: Acute Hospital course: Mr. Tam is a 21 year old male with history of tobacco abuse, IV drug abuse, presented to the [facility] urgent care today for generalized weakness, subjective fever , mild headache, nausea, vomiting, and muscle ache. Patient said he he felt sick like this for about one week. The morning of his admission he checked the temperature which was 100.1. Patient denies runny nose, sore throat, cough, abdominal pain, diarrhea. In [place] urgent care, he was found leukocytosis with WBC 29,000. Patient was transferred to our hospital to rule out endocarditis considering the history of IV drug use. Patient had blood cultures send from [facility] urgent and also had 3 sets of blood culture drawn in our ER. Patient was started on Vanco. Cultures consistently grew gram-positive rods. Multiple repeat blood cultures were positive for gram-positive rods here. The most recent one was on 04/30. Infectious disease was seen the patient while hospitalized. He was maintained on vancomycin. A TTE ruled out any vegetations however a MARCE was ordered. The patient could not be sedated for his MARCE with high doses of IV meds and that MARCE was aborted. This was on 05/01. It was planned to be done again on 05/02 under anesthesia. The patient while hospitalized could not leave AGAINST MEDICAL ADVICE multiple times. His mother who is a nurse was aware and talked him into stay multiple times. The patient continued to threaten to leave AGAINST MEDICAL ADVICE. He had a girlfriend who came in once and his parents have asked that she does not come in or speak in any food to him. She again showed up on 05/01 and brought him a drink for which security were called. The patient even before: Security was adamant that he was leaving against medical advise. Despite our efforts and explaining tender risks of leaving he ended up leaving against medical advise. The patient tested positive for hepatitis C antibody. He was explained that he would need to have follow-up with GI at some point. He did have elevated liver function test as well. As mentioned above the patient left AGAINST MEDICAL ADVICE on . - Time Spent with Patient Total time spent providing and/or coordinating discharge services: Greater than 30 minutes - Discharge Medications Home Medications: No Known Home Drugs 04/29/17 [History] Allergies/Adverse Reactions: 3 Allergy/AdvReac Type Severity Reaction Status Date / Time No Known Allergies Allergy Verified 04/29/17 11:20 Date of admission: 04/27/17 22:00 Primary care physician: [facility] Consults: 04/27/17 22:27 Consult to Nutrition [CONS] Routine Comment: Consulting Provider: NUTRITION Reason for Dietary Consult: MST Score Consult to Pastoral Services [CONS] Routine Comment: 04/29/17 09:13 Consult to Infectious Diseases [CONS] Routine Consulting Provider: Infectious Disease [place] Reason for Consult: Bacteremia Time Notified: 09:13 Call Completed: Yes - Constitutional Vitals: Temp Pulse Resp BP Pulse Ox 98.1 F 82 12 120/76 99 05/01/17 11:48 05/01/17 11:48 05/01/17 11:48 05/01/17 11:48 05/01/17 11:48 General appearance: Present: A&O X 3, no acute distress, answers questions appropriately Exam: GEN: NAD CVS: RRR. S1, S2, No m/r/g RESP: CTAB ABD: Soft, NT, ND, +BS EXT: No edema. 2+ DP. No rashes NEURO: Nonfocal - Patient Status Disposition: Left Against Medical Advice Condition: Critical Overall status at discharge: patient is not back to baseline - Discharge Instructions Follow Up With: [facility] [Primary Care Provider[facility] - [facility] Will [facility] up with their providers)
[2017-05-04 10:27] LABS: HCV Quant Interpretation DETECTED (Not Detected)
== END 2017-05-01 15:00 | disposition left against medical advice (07) | DRG 872 ==
LOC: EMEROO 19:26 → 2ANU 19:26
PROVIDERS: ADMIT Hospitalist; ATTEND Family Medicine